=== PATIENT | male | born 1990 | race Caucasian/White ===

== ENCOUNTER 2022-01-19 00:22 | Emergency (ER) | payer OTHER ==
[2022-01-19] MEDS ORDERED: Ibuprofen 400 MG Tab PO ONE (00:28)
[2022-01-19] MEDS ORDERED: Acetaminophen 325 MG Tab PO ONE (00:28)
[2022-01-19] MEDS ORDERED: Acetaminophen 500 MG Tab PO ONE (00:30)
== END 2022-01-19 04:26 | disposition home or self-care (01) ==
LOC: MW.ED 00:22
DX: M25.551 Pain in right hip (principal); W00.0XXA Fall on same level due to ice and snow, initial encounter; Y99.0 Civilian activity done for income or pay
CPT/HCPCS: 73502; 73700; 99284; A9270